=== PATIENT | male | born 1990 | race Two or more races ===

== ENCOUNTER 2022-11-01 15:05 | Emergency (ER) | payer MEDICAID ==
[~2022-11-01] VITALS: Ht 177.8 cm; Wt 87.5 kg
[2022-11-01 16:32] VITALS: BP 120/81
[2022-11-01] MEDS ORDERED: PROM1SOL4 PO (16:34)
[2022-11-01] MEDS ORDERED: AZIT500T66 PO (16:34)
== END 2022-11-01 16:53 | disposition home or self-care (01) ==
LOC: ER 15:05
DX: U07.1 COVID-19 (principal); J20.9 Acute bronchitis, unspecified; R07.89 Other chest pain
CPT/HCPCS: 71046